=== PATIENT | male | born 1965 | race Caucasian/White ===

== ENCOUNTER 2017-10-16 10:22 | Emergency (ER) | payer OTHER, SELFPAY ==
[~2017-10-16 10:22] MED LIST: Sodium Chloride 0.9% 1,000 ML BAG ONE; Sodium Chloride 0.9% 100 ML BAG ONE
[2017-10-16] MEDS ORDERED: Meclizine HCl 25 MG TAB ONE (10:51)
[2017-10-16 11:22] LABS: Calc. Creatinine Clearance 0 mL/min (70-130); Calcium 9.9 mg/dL (7.8-10.44); Chloride 94 mmol/L (98-107); Estimated GFR-MDRD 56; Potassium 4.3 mmol/L (3.5-5.1); Sodium 124 mmol/L (136-145)
[2017-10-16 11:35] LABS: Mean Corpuscular Hemoglobin 31.5 pg (27.0-31.0); Mean Corpuscular Volume 83.6 fL (80.0-94.0); Red Blood Cell (RBC) Count 5.32 mill/uL (4.70-6.10)
[2017-10-16 11:37] LABS: Hemoglobin 16.7 g/dL (14.0-18.0)
[2017-10-16 11:38] LABS: #Neutrophils 12.6 thou/uL (1.40-6.50); %Basophils 1.9 % (0.0-1.0); %Eosinophils 0.7 % (0.0-10.0); %Lymphocytes 10.1 % (21.0-51.0); %Monocytes 8.5 % (0.0-10.0); %Neutrophils 78.8 % (42.0-75.0); Mean Corpuscular HGB CONC 37.7 g/dL (32.0-36.0); Mean Platelet Volume 7.8 fL (7.4-10.4); Platelet Count 216 thou/uL (130-400); RBC Distribution Width 12.1 % (11.5-14.5)
[2017-10-16 11:39] LABS: #Basophils 0.3 thou/uL (0.0-0.2); #Eosinphils 0.1 thou/uL (0.0-0.7); #Lymphocytes 1.6 thou/uL (1.20-3.40); #Monocytes 1.4 thou/uL (0.11-0.59)
[2017-10-16 11:59] LABS: Alkaline Phosphatase 66 U/L (40-150)
[2017-10-16 12:00] LABS: AST (SGOT) 12 U/L (5-34); Glucose 423 mg/dL (70-105)
[2017-10-16 12:02] LABS: Bilirubin, Total 0.5 mg/dL (0.2-1.2)
[2017-10-16 12:15] LABS: Bilirubin Negative (Negative); Blood, Urine Negative (Negative); Clarity Clear (Clear); Glucose, Urine (Dipstick) >=1000 mg/dL (Negative); Leukocyte Negative (Negative); Nitrite Negative (Negative); Protein, Urine (Dipstick) Negative (Neg-Trace); Urobilinogen 0.2 mg/dL (0.2-1.0); pH, Urine 5.5 (5.0-9.0)
[2017-10-16] MEDS ORDERED: Insulin Regular 300 UNITS/3 ML VIAL ONE (14:29)
[2017-10-17 01:56] LABS: ALT (SGPT) 19 U/L (8-55); BUN (Urea Nitrogen) 13 mg/dL (8.4-25.7); Carbon Dioxide 19 mmol/L (22-29)
[2017-10-17 01:58] LABS: Anion Gap 15 mmol/L (10-20)
== END 2017-10-16 14:47 | disposition short-term general hospital (02) ==
LOC: MADERS 10:22
DX: E11.65 Type 2 diabetes mellitus with hyperglycemia (principal); E86.0 Dehydration; E11.9 Type 2 diabetes mellitus without complications; I25.10 Atherosclerotic heart disease of native coronary artery without angina pectoris; I10 Essential (primary) hypertension; F17.210 Nicotine dependence, cigarettes, uncomplicated
CPT/HCPCS: 80053; 81003; 85025; 93005; 96361; 96374; J1815; J7050